=== PATIENT | female | born 1985 | race Caucasian/White ===

== ENCOUNTER 2017-12-21 16:43 | Emergency (ER) | payer MEDICARE, MEDICAID ==
--- NOTE | 2017-12-21 17:15 | EDM.PDOC ---
ED HPI GENERAL MEDICAL PROBLEM - General Time Seen by Provider: 12/21/17 16:55 Source of Information: Reports: Patient History Limitations: Reports: No Limitations - History of Present Illness INITIAL COMMENTS - FREE TEXT/NARRATIVE: Pt is from [place], [place]. Pt claims that she was having frequent urination all day yesterday. So she did call her primary care office in [place], she was asked to bring a sample or urine and she was started on some antibiotics that patient does not know. She did not get called with her urine test results. Apparently today, patient claims that about 4 PM, she started having pain in her right upper abdomen, pain was severe when it started. rate at 10/10, but now is down to 6-7/10, pain is constant. Did feels nauseous, but no vomiting. No fever or chills. No cough. No hematuria. No back pain. no headache. no vaginal discharge. No other concerns. Onset: Today - Related Data Allergies Allergy/AdvReac Type Severity Reaction Status Date / Time codeine Allergy Blisters Verified 12/21/17 17:13 Home Meds: Home Meds NK [No Known Home Meds] 12/21/17 [History] ED ROS GENERAL - Review of Systems Review Of Systems: See Below Constitutional: Denies: Fever, Chills, Weakness, Fatigue, Diaphoresis HEENT: Denies: Rhinitis, Throat Pain Respiratory: Denies: Shortness of Breath, Cough, Sputum Cardiovascular: Denies: Chest Pain, Lightheadedness GI/Abdominal: Reports: Nausea. Denies: Abdominal Pain, Vomiting : Reports: Dysuria, Flank Pain, Frequency. Denies: Hematuria Musculoskeletal: Denies: Joint Pain, Joint Swelling Skin: Denies: Pruritis, Rash, Erythema ED EXAM, GENERAL - Physical Exam Exam: See Below Exam Limited By: No Limitations General Appearance: Alert, WD/WN, No Apparent Distress Eye Exam: Bilateral Eye: EOMI, PERRL Ears: Normal External Exam, Normal Canal, Hearing Grossly Normal, Normal TMs Ear Exam: Bilateral Ear: Auricle Normal, Canal Normal, TM normal Nose: Normal Inspection, Normal Mucosa, No Blood Throat/Mouth: Normal Inspection, Normal Lips, Normal Teeth, Normal Gums, Normal Oropharynx, Normal Voice, No Airway Compromise Head: Atraumatic, Normocephalic Neck: Normal Inspection, Supple, Non-Tender, Full Range of Motion Respiratory/Chest: No Respiratory Distress, Lungs Clear, Normal Breath Sounds, No Accessory Muscle Use, Chest Non-Tender Cardiovascular: Normal Peripheral Pulses, Regular Rate, Rhythm, No Edema, No Gallop, No JVD, No Murmur, No Rub GI/Abdominal: Normal Bowel Sounds, Soft, No Organomegaly, No Distention, No Abnormal Bruit, No Mass, Tender (supra pubic discomfort. vague rigth renal angle discomfort.) Neurological: Alert, Oriented Psychiatric: Normal Affect, Anxious Skin Exam: Warm, Intact Course - Vital Signs Text/Narrative:: CBC shows whtie count of 14.3 with normal differential counts. Her BMP is normal.Her UA does show Positive nitrites with + leucs. Pt reassured that she has UTI. She does have right renal angle discomfort, but she odes not have fever or chills, nausea , vomiting. This could be UTI or ureteric stone. Does not appear like ureteric stone as pt is very comfortable in the emergency room and does have typical symptoms. Pt reassured that she has UTI.I have started patient on levaquin 500mg po daily , which should cover for early pyelonephritis too. Advised to drink plenty of fluids. I have ordered Urine culture, will call patient with results. Advised to followup with her primary care provider in [place] tomorrow and have a renal ultrasound scheduled. If symptoms worsen advised to return to emergency room. - Orders/Labs/Meds Orders: Active Orders 24 hr Category Date Time Status BASIC METABOLIC PANEL,BMP [CHEM] Stat Lab 12/21/17 17:01 Ordered CBC WITH AUTO DIFF [HEME] Stat Lab 12/21/17 16:59 Ordered UA W/MICROSCOPIC [URIN] Stat Lab 12/21/17 16:59 Ordered Departure - Departure Time of Disposition: 17:40 Disposition: Home, Self-Care 01 Condition: Fair Clinical Impression: UTI (urinary tract infection) - Discharge Information Additional Instructions: Pt reassured that she has UTI.I have started patient on levaquin 500mg po daily , which should cover for early pyelonephritis too. Advised to drink plenty of fluids. I have ordered Urine culture, will call patient with results. Advised to followup with her primary care provider in [place] tomorrow and have a renal ultrasound scheduled. If symptoms worsen advised to return to emergency room. - Problem List & Annotations (1) UTI (urinary tract infection) SNOMED Code(s): 89122462 Code(s): N39.0 - URINARY TRACT INFECTION, SITE NOT SPECIFIED Status: Acute Current Visit: Yes - Problem List Review Problem List Initiated/Reviewed/Updated: Yes - My Orders Last 24 Hours: My Active Orders 12/21/17 16:59 CBC WITH AUTO DIFF [HEME] Stat UA W/MICROSCOPIC [URIN] Stat 12/21/17 17:01 BASIC METABOLIC PANEL,BMP [CHEM] Stat - Assessment/Plan Last 24 Hours: My Active Orders 12/21/17 16:59 CBC WITH AUTO DIFF [HEME] Stat UA W/MICROSCOPIC [URIN] Stat 12/21/17 17:01 BASIC METABOLIC PANEL,BMP [CHEM] Stat Assessment:: UTI Plan: BC shows whtie count of 14.3 with normal differential counts. Her BMP is normal.Her UA does show Positive nitrites with + leucs. Pt reassured that she has UTI. She does have right renal angle discomfort, but she odes not have fever or chills, nausea , vomiting. This could be UTI or ureteric stone. Does not appear like ureteric stone as pt is very comfortable in the emergency room and does have typical symptoms. I have started patient on levaquin 500mg po daily, which should cover for early pyelonephritis too. Advised to drink plenty of fluids. I have ordered Urine culture, will call patient with results. Advised to followup with her primary care provider in [place] tomorrow and have a renal ultrasound scheduled. If sympotms worsen advised to return to emergency room.
[2017-12-21] MEDS: Levofloxacin 500 MG Tab ONE (17:31)
== END 2017-12-21 17:33 | disposition home or self-care (01) ==
LOC: LB.ED 16:43
DX: N39.0 Urinary tract infection, site not specified (principal); Z88.5 Allergy status to narcotic agent
CPT/HCPCS: 36415; 80048; 81001; 85025; 87086; 87088; 87186; 99283; A9270-GY

== ENCOUNTER 2022-11-26 20:08 | Emergency (ER) | payer MEDICARE, MEDICAID ==
[2022-11-26 20:55] LABS: APPEARANCE,URINE CLEAR (CLEAR); COLOR,URINE ORANGE; LEUKOCYTE ESTERASE,URINE NEGATIVE (NEGATIVE); OCCULT BLOOD,URINE MODERATE (NEGATIVE)
[2022-11-26 20:56] LABS: BILIRUBIN,URINE UNABLE TO REPORT (NEGATIVE); GLUCOSE,URINE UNABLE TO REPORT mg/dL (NEGATIVE); KETONES,URINE UNABLE TO REPORT mg/dL (NEGATIVE); NITRITE,URINE UNABLE TO REPORT (NEGATIVE); PROTEIN,URINE UNABLE TO REPORT mg/dL (NEGATIVE); UROBILINOGEN,URINE UNABLE TO REPORT E.U./dL (0.2-1.0)
[2022-11-26 21:00] LABS: RBC,URINE 20-30 /HPF; SQUAMOUS EPITHELIAL CELLS,UR FEW /HPF; WBC,URINE 0-5 /HPF
[2022-11-26] MEDS ORDERED: Sodium Chloride 0.9% 1,000 ML IV ONE (21:28)
[2022-11-26] MEDS ORDERED: Ketorolac 60 MG/2 ML SDV IVPUSH ONE (21:28)
[2022-11-26] MEDS ORDERED: Ketorolac 30 MG/ML SDV ONE (21:56)
[2022-11-26] MEDS ORDERED: Sulfamethoxazole/Trimethoprim 800-160 MG Tab ONE (22:30)
== END 2022-11-26 22:45 | disposition home or self-care (01) ==
LOC: SUPCPDRO 20:08 → LB.ED 20:08
DX: N39.0 Urinary tract infection, site not specified (principal); I10 Essential (primary) hypertension; Z88.5 Allergy status to narcotic agent; Z72.0 Tobacco use
CPT/HCPCS: 74176; 81001; 96361; 96374; 99284; A9270; J1885; J7030